=== PATIENT | female | born 1970 | race African-American/Black ===

== ENCOUNTER 2016-09-16 22:53 | Emergency (ER) | payer OTHER ==
[~2016-09-16] VITALS: Ht 165.1 cm; Wt 79.8 kg
[2016-09-16] MEDS ORDERED: AMOXICILLIN500 M1 PO (23:14)
[2016-09-16] MEDS ORDERED: IBUPROFEN 600600 M1 PO (23:14)
[2016-09-16 23:20] VITALS: BP 140/72
== END 2016-09-17 00:16 | disposition home or self-care (01) ==
LOC: ER 22:53
DX: H66.92 Otitis media, unspecified, left ear (principal); F17.210 Nicotine dependence, cigarettes, uncomplicated; Z91.013 Allergy to seafood